=== PATIENT | female | born 1980 | race Hispanic/Latino ===

== ENCOUNTER → 2019-01-10 | Outpatient (CLI) | payer BC ==
[2019-01-10 11:51] LABS: THYROID STIMULATING HORMONE 3.81 uIU/mL (0.36-3.74)
== END | disposition home or self-care (01) ==
LOC: LAB 10:19
PROVIDERS: ATTEND Internal Medicine
DX: E03.9 Hypothyroidism, unspecified (principal)
CPT/HCPCS: 36415; 84439; 84443